=== PATIENT | male | born 1965 | race African-American/Black ===

== ENCOUNTER 2020-10-10 06:12 | Observation (INO) ==
[2020-10-10] MEDS ORDERED: Nitroglycerin 0.3 mg TAB SL ONE (06:32)
[2020-10-10 06:42] LABS: ABS Lymphocytes 1.5 10^3/ul (1.0-4.8); ABS Monocytes 0.7 10^3/ul (0-0.8); ABS Neutrophils 9.2 10^3/ul (1.5-7.7); Eosinophil % 0.2 %; Hematocrit 41 % (42-52); Hemoglobin 13.6 g/dL (14.0-18.0); Mean Corpuscular HGB Conc 33 g/dL (31-36); Mean Corpuscular Hemoglobin 26 pg (27-31); Mean Corpuscular Volume 78 fL (80-94); Mean Platelet Volume 8.2 fL (7.4-10.4); Nucleated Red Blood Cells % 0.1; Platelet Count 269 10^3/uL (150-450); Red Blood Count 5.23 10^6 /uL (4.18-5.48); Red Cell Distribution Width 15 % (10-15); White Blood Count 11.5 10^3/uL (3.5-10.8)
[2020-10-10 06:58] LABS: Albumin 4.3 g/dL (3.2-5.2); Albumin/Globulin Ratio 1.2 (1-3); Calcium 9.2 mg/dL (8.6-10.3); EGFR African American 76.3 (>60); EGFR Non-African American 63.1 (>60); Globulin 3.5 g/dL (2-4); Potassium 3.6 mmol/L (3.5-5.0); Total Bilirubin 0.8 mg/dL (0.2-1.0); Total Protein 7.8 g/dL (6.4-8.9)
[2020-10-10] MEDS ORDERED: Magnesium Hydroxide LIQ 30 ML UDC PO PRN (08:07)
[2020-10-10] MEDS ORDERED: Al Hydrox/Mg Hydrox/Simet LIQ 30 ML UDC PO PRN (08:07)
[2020-10-10] MEDS ORDERED: Ondansetron 4 mg VIAL 2 MG/ML 2 ml VIAL IV PRN (08:07)
[2020-10-10 08:08] LABS: C Reactive Protein 54.27 mg/L (<8.01)
[2020-10-10 09:08] LABS: Erythrocyte Sed Rate 22 mm/Hr (0-19)
[2020-10-10 09:31] LABS: HDL Cholesterol 46.3 mg/dL
[2020-10-10] MEDS ORDERED: ceFOXitin 2 GM IVPREMIX 2 GM/50 ML BAG IVPB SCH (10:00)
[2020-10-10] MEDS: ceFOXitin 2 GM in NS 0.9% 50 ML IVPB SCH ×3 (12:05→20:39)
[2020-10-10 12:08] LABS: Urine Appearance Clear; Urine Bilirubin Negative (Negative); Urine Blood Negative (Negative); Urine Color Yellow; Urine Glucose Negative (Negative); Urine Ketones Negative (Negative); Urine Nitrite Negative (Negative); Urine Protein 1+(30 mg/dL) (Negative); Urine Specific Gravity 1.027 (1.002-1.030); Urine Urobilinogen Negative (Negative)
[2020-10-10 12:13] LABS: Urine Bacteria Absent (Absent); Urine Red Blood Cell 1+(3-5/hpf) (Absent); Urine Squamous Epithelial Cell Present (Absent); Urine White Blood Cell Trace(0-5/hpf) (Absent)
[2020-10-10] MEDS ORDERED: Morphine 4 MG/ML VIAL (1 ml) IV PRN (12:15)
[2020-10-10] MEDS: Heparin 5000 UNITS/ML 1 mL VIAL SUBCUT SCH ×2 (16:14→20:39)
[2020-10-11] MEDS: ceFOXitin 2 GM in NS 0.9% 50 ML IVPB SCH ×2 (03:54→09:53)
[2020-10-11] MEDS: Heparin 5000 UNITS/ML 1 mL VIAL SUBCUT SCH ×2 (05:38→13:09)
[2020-10-11 05:57] LABS: ABS Eosinophils 0.1 10^3/ul (0-0.6); ABS Monocytes 0.6 10^3/ul (0-0.8); Eosinophil % 1.3 %; Hematocrit 40 % (42-52); Hemoglobin 12.8 g/dL (14.0-18.0); Lymphocyte % 26.3 %; Mean Corpuscular HGB Conc 32 g/dL (31-36); Mean Corpuscular Hemoglobin 26 pg (27-31); Mean Corpuscular Volume 81 fL (80-94); Mean Platelet Volume 8.3 fL (7.4-10.4); Platelet Count 249 10^3/uL (150-450); Red Cell Distribution Width 16 % (10-15); White Blood Count 7.7 10^3/uL (3.5-10.8)
[2020-10-11 06:17] LABS: Calcium 9.2 mg/dL (8.6-10.3); EGFR African American 81.8 (>60); EGFR Non-African American 67.6 (>60); Potassium 3.6 mmol/L (3.5-5.0)
[2020-10-11 08:01] VITALS: BP 121/82
[2020-10-11] MEDS ORDERED: Regadenoson 0.4 MG/5 ML SYRINGE ONE ×2 (09:27→11:04)
[2020-10-11] MEDS ORDERED: Aminophylline 25 MG/ML VIAL ONE (09:27)
[2020-10-11] MEDS ORDERED: Perflutren Lipid Microsphere 3 ML VIAL ONE (10:34)
== END 2020-10-11 14:08 | disposition home or self-care (01) ==
LOC: ED 06:12 → MEDTELE 06:12
PROVIDERS: ADMIT Hospitalist; ATTEND Hospitalist